=== PATIENT | male | born 1995 | race Hispanic/Latino ===

== ENCOUNTER 2018-07-12 13:49 | Emergency (ER) | payer OTHER ==
[~2018-07-12] VITALS: Ht 175.3 cm; Wt 102.1 kg
[2018-07-12] MEDS ORDERED: TETRACAINE HCL 0.5% OPTH SOLN 4 ML BTL OP ONE (16:00)
[2018-07-12] MEDS ORDERED: FLUORESCEIN SOD(OPTH) 1 MG STRP OP ONE (16:00)
[2018-07-12 16:13] VITALS: BP 125/75
== END 2018-07-12 16:18 | disposition home or self-care (01) ==
LOC: FSED 13:49
DX: H57.12 Ocular pain, left eye (principal); T15.12XA Foreign body in conjunctival sac, left eye, initial encounter; T15.02XA Foreign body in cornea, left eye, initial encounter; Y99.0 Civilian activity done for income or pay
CPT/HCPCS: 99283